=== PATIENT | male | born 1960 | race Caucasian/White ===

== ENCOUNTER → 2016-04-28 | Outpatient (CLI) | payer MEDICAID | LOC: SBRMNEURO 21:30 | PROVIDERS: ATTEND Psychiatry & Neurology Sleep Medicine | DX: G47.33 Obstructive sleep apnea (adult) (pediatric) (principal) ==

== ENCOUNTER 2016-12-01 22:59 | Emergency (ER) | payer MEDICAID ==
[2016-12-01 23:17] VITALS: RESP 16; TEMP 98.2; O2SAT 95
--- NOTE | 2016-12-01 23:24 | EDPHY ---
H & P Stated Complaint: Right flank pain. HPI/ROS: HPI CHIEF COMPLAINT: Right flank pain HISTORY OF PRESENT ILLNESS: Patient very pleasant 56-year-old male who presents emergency room with right flank pain. Patient reports to me that around 5 o'clock in noticed some right dull flank pain. Radiates to his right lower abdomen and then into his testicle. No nausea vomiting no fever no dysuria no blood in his urine. This pain has been persistent. Similar to previous kidney stones but more gradual. Denies chest pain or shortness of breath. 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 Exam Constitutional appears well nontoxic, triage nursing summary reviewed, vital signs reviewed, awake/alert. Eyes normal conjunctivae and sclera, EOMI, PERRLA. HENT normal inspection, atraumatic, moist mucus membranes, no epistaxis, neck supple/ no meningismus, no raccoon eyes. Respiratory clear to auscultation bilaterally, normal breath sounds, no respiratory distress, no wheezing. Cardiovascular rate normal, regular rhythm, no murmur, no edema, distal pulses normal. Gastrointestinal soft, non-tender, no rebound, no guarding, normal bowel sounds, no distension, no pulsatile mass. Genitourinary no CVA tenderness. Musculoskeletal no midline vertebral tenderness, full range of motion, no calf swelling, no tenderness of extremities, no meningismus, good pulses, neurovascularly intact. Skin pink, warm, & dry, no rash, skin atraumatic. Neurologic awake, alert and oriented x 3, AAOx3, moves all 4 extremities equally, motor intact, sensory intact, CN II-XII intact, normal cerebellar, normal vision, normal speech. Psychiatric normal mood/affect. Heme/Lymph/Immune no lymphadenopathy. Differential Diagnosis: Includes but is not limited to in a particular order kidney stone, hydroureter, hydronephrosis, pyelonephritis, UTI Medical Decision Making: Plan for this patient IV establishment IV fluid bolus , Toradol for pain control, CT scan abdomen pelvis without contrast for kidney stone right flank pain. Re-evaluate and check urinalysis. Re-evaluation: CT scan of the abdomen pelvis without contrast. The results of the study are this shows 3 mm proximal right UPJ stone. Hydronephrosis present.. The study was read by Dr. Fuchs I viewed the images myself on the PACS system. 1222: Patient resting comfortably no acute distress. Recommend follow up with Urology. Lots of fluids. Stay well-hydrated. Hermitage for acute pain control ibuprofen for mild pain Flomax. Return emergency room if there is worsening symptoms questions or concerns. Source: Patient - Personal History Current Tetanus/Diphtheria Vaccine: Unsure Current Tetanus Diphtheria and Acellular Pertussis (TDAP): Unsure - Medical/Surgical History Hx Asthma: No Hx Chronic Respiratory Disease: No Hx Diabetes: No Hx Cardiac Disease: No Hx Renal Disease: No Hx Cirrhosis: No Hx Alcoholism: No Hx HIV/AIDS: No Hx Splenectomy or Spleen Trauma: No Other PMH: Kidney stones, knee sx, rectal tumor removal. - Social History Smoking Status: Former smoker Constitutional: Initial Vital Signs Temperature (C) 36.8 C 12/01/16 23:12 Heart Rate 66 12/01/16 23:12 Respiratory Rate 16 12/01/16 23:12 Blood Pressure 143/95 H 12/01/16 23:12 O2 Sat (%) 95 12/01/16 23:12 O2 Delivery Mode Room Air Allergies/Adverse Reactions: No Known Allergies Allergy (Unverified 12/01/16 23:17) Home Medications: Medication Instructions Recorded Hydrocodone/APAP 5/325 [H[place]itage 1 - 2 tab PO Q4H PRN #10 tab 12/02/16 5/325] Ibuprofen [Motrin (*)] 800 mg PO Q6-8PRN #7 tab 12/02/16 Tamsulosin HCl [Flomax] 0.4 mg PO DAILY #10 cap 12/02/16 Medical Decision Making - Data Points Laboratory Results: Laboratory Results 12/01/16 23:35 12/01/16 23:35 12/01/16 12/01/16 23:35 23:35 WBC 8.30 10^3/uL 10^3/uL (3.80-9.50) RBC 4.35 10^6/uL L 10^6/uL (4.40-6.38) Hgb 13.7 g/dL g/dL (13.7-17.5) Hct 37.8 % L % (40.0-51.0) MCV 86.9 fL fL (81.5-99.8) MCH 31.5 pg pg (27.9-34.1) MCHC 36.2 g/dL g/dL (32.4-36.7) RDW 11.9 % % (11.5-15.2) Plt Count 235 10^3/uL 10^3/uL (150-400) MPV 9.9 fL fL (8.7-11.7) Neut % (Auto) 50.7 % % (39.3-74.2) Lymph % (Auto) 36.9 % % (15.0-45.0) [place] % (Auto) 6.3 % % (4.5-13.0) Eos % (Auto) 4.9 % % (0.6-7.6) Baso % (Auto) 0.7 % % (0.3-1.7) Nucleat RBC Rel Count 0.0 % % (0.0-0.2) Absolute Neuts (auto) 4.21 10^3/uL 10^3/uL (1.70-6.50) Absolute Lymphs (auto) 3.06 10^3/uL H 10^3/uL (1.00-3.00) Absolute Monos (auto) 0.52 10^3/uL 10^3/uL (0.30-0.80) Absolute Eos (auto) 0.41 10^3/uL H 10^3/uL (0.03-0.40) Absolute Basos (auto) 0.06 10^3/uL 10^3/uL (0.02-0.10) Absolute Nucleated RBC 0.00 10^3/uL 10^3/uL (0-0.01) Immature Gran % 0.5 % % (0.0-1.1) Immature Gran # 0.04 10^3/uL 10^3/uL (0.00-0.10) Sodium 135 mEq/L mEq/L (134-144) Potassium 3.5 mEq/L mEq/L (3.5-5.2) Chloride 102 mEq/L mEq/L (97-110) Carbon Dioxide 21 mEq/l L mEq/l (22-31) Anion Gap 12 mEq/L mEq/L (8-16) BUN 18 mg/dL mg/dL (7-23) Creatinine 1.1 mg/dL mg/dL (0.7-1.3) Estimated GFR > 60 Glucose 126 mg/dL H mg/dL (70-100) Calcium 9.5 mg/dL mg/dL (8.5-10.4) Total Bilirubin 0.4 mg/dL mg/dL (0.1-1.4) Conjugated Bilirubin 0.3 mg/dL mg/dL (0.0-0.5) Unconjugated Bilirubin 0.1 mg/dL mg/dL (0.0-1.1) AST 26 IU/L IU/L (17-59) ALT 32 IU/L IU/L (21-72) Alkaline Phosphatase 65 IU/L IU/L (38-126) Total Protein 7.0 g/dL g/dL (6.3-8.2) Albumin 4.1 g/dL g/dL (3.5-5.0) Lipase 152 IU/L IU/L (23-300) Medications Given: Discontinued Medications Sodium Chloride (Ns) 1,000 mls @ 0 mls/hr IV EDNOW ONE; Wide Open PRN Reason: Protocol Stop: 12/01/16 23:26 Last Admin: 12/01/16 23:39 Dose: 1,000 mls Ketorolac Tromethamine (Toradol) 15 mg IVP EDNOW ONE Stop: 12/01/16 23:43 Last Admin: 12/02/16 00:03 Dose: 15 mg Departure - Departure Disposition: Home, Routine, Self-Care Clinical Impression: Kidney stone on right side Condition: Good Instructions: Kidney Stones (ED) Additional Instructions: 1. Stay well-hydrated drink lots of fluids. 2. Return emergency room if you have worsening pain vomiting or fever Referrals: Arpit Hayden MD [Primary Care Provider] - As per Instructions Paul Saunders MD [Medical Doctor] - As per Instructions Prescriptions: Hydrocodone/APAP 5/325 [[place] 5/325] 1 - 2 tab PO Q4H PRN #10 tab PRN Reason: Pain, Moderate Ibuprofen [Motrin (*)] 800 mg PO Q6-8PRN #7 tab Tamsulosin HCl [Flomax] 0.4 mg PO DAILY #10 cap
[2016-12-01] MEDS ORDERED: NS 1,000 ML IV ONE (23:25)
[2016-12-01] MEDS ORDERED: KETOROLAC 15 MG/1 ML SDV IVP ONE (23:42)
[2016-12-01 23:55] LABS: % IMMATURE GRANULYOCYTES 0.5 % (0.0-1.1); ABSOLUTE IMMATURE GRANULOCYTES 0.04 10^3/uL (0.00-0.10); ADD DIFF? NO; ADD MORPH? NO; ADD SCAN? NO; ATYPICAL LYMPHOCYTE FLAG 0 (0-99); FRAGMENT RBC FLAG 0 (0-99); HEMATOCRIT 37.8 % (40.0-51.0); HEMOGLOBIN 13.7 g/dL (13.7-17.5); LEFT SHIFT FLG 0 (0-99); LIPEMIA HEMOLYSIS FLAG 90 (0-99); MEAN CELL HEMOGLOBIN 31.5 pg (27.9-34.1); MEAN CELL HEMOGLOBIN CONCENTR. 36.2 g/dL (32.4-36.7); MEAN CELL VOLUME 86.9 fL (81.5-99.8); MEAN PLATELET VOLUME 9.9 fL (8.7-11.7); PLATELET CLUMPS FLAG 0 (0-99); PLATELET COUNT 235 10^3/uL (150-400); RED BLOOD CELL COUNT 4.35 10^6/uL (4.40-6.38); RED CELL DISTRIBUTION WIDTH 11.9 % (11.5-15.2)
[2016-12-02] LABS: ALANINE AMINOTRANSFERASE 32 IU/L (21-72); ALBUMIN 4.1 g/dL (3.5-5.0); ALKALINE PHOSPHATASE 65 IU/L (38-126); ANION GAP 12 mEq/L (8-16); ASPARTATE AMINOTRANSFERASE 26 IU/L (17-59); BILIRUBIN,TOTAL 0.4 mg/dL (0.1-1.4); BILIRUBIN-CONJUGATED 0.3 mg/dL (0.0-0.5); BILIRUBIN-UNCONJUGATED 0.1 mg/dL (0.0-1.1); CALCIUM 9.5 mg/dL (8.5-10.4); CARBON DIOXIDE 21 mEq/l (22-31); CHLORIDE 102 mEq/L (97-110); CREATININE 1.1 mg/dL (0.7-1.3); GLOMERULAR FILTRATION RATE > 60; GLUCOSE 126 mg/dL (70-100); POTASSIUM 3.5 mEq/L (3.5-5.2); SODIUM 135 mEq/L (134-144)
[2016-12-02 00:45] LABS: COLOR YELLOW; LEUKOCYTE ESTERASE,URINE NEGATIVE (NEGATIVE); NITRITE,URINE NEGATIVE (NEGATIVE)
[2016-12-02 01:25] VITALS: BP 128/81
[2016-12-02 01:27] VITALS: PULSE 60
[2016-12-02 01:34] LABS: MUCUS 1+ /lpf (NONE-1+); RBC,URINE 50-182 /hpf (0-3)
== END 2016-12-02 01:41 | disposition home or self-care (01) ==
DX: N20.0 Calculus of kidney (principal); E86.9 Volume depletion, unspecified; Z87.891 Personal history of nicotine dependence
CPT/HCPCS: 96374; J1885

== ENCOUNTER 2017-08-22 16:00 | Emergency (ER) | payer MEDICAID ==
--- NOTE | 2017-08-22 17:09 | EDPHY ---
H & P Time Seen by Provider: 08/22/17 17:08 HPI/ROS: CHIEF COMPLAINT: Right-sided flank pain HISTORY OF PRESENT ILLNESS: History of kidney stones, 4 previously. Last was diagnosed 12/01/[address] scan in our department. Presents today with pain since 3:00 p.m., right-sided wrapping around to his anterior abdomen into his right testicle. Little bit of urinary urgency. No fever or chills. No recent injury or trauma. No vomiting or diarrhea. Feels identical to previous kidney stones which never had to have surgical or procedural removal. Symptoms moderate at this time. REVIEW OF SYSTEMS: Eye: no change in vision ENT: no sore throat Cardiac: no chest pain or syncope Pulmonary: no cough or SOB Abdomen: HPI Musculoskeletal: HPI Skin: no rash Neuro: no headache Constitutional: no fever, did not get a lot of sleep last night he went to a concert and then woke up early today. : no urinary symptoms A comprehensive 10 point review of systems is otherwise negative aside from elements mentioned in the history of present illness. PAST MEDICAL HISTORY: Kidney stones, carcinoid rectal tumor removal. Social history: Here with his girlfriend General Appearance: Alert and conversant, cooperative. Eyes: No scleral icterus. ENT, Mouth: Normal mucous membranes. Respiratory: Normal respiratory effort, breath sounds equal, lungs are clear to auscultation. Cardiovascular: Regular rate and rhythm. Gastrointestinal: Abdomen is soft and non tender. Normal male without hernia or testicular swelling or abnormality. Neurological: Alert, face symmetric, normal motor and sensory in extremities. Skin: Warm and dry, no rashes. Musculoskeletal: No peripheral edema. Psychiatric: Not agitated. Emergency Department course/MDM: Likely acute renal colic. Discussed plan with the patient that I would like to try and avoid ionizing radiation, he is agreeable. Toradol 15 mg IV, hydrocodone 1 orally, IV normal saline 1 L, ultrasound. 1907: Ultrasound per Dr. Hernandez shows hydronephrosis, can't see distal ureter, likely acute renal colic on the right side. 4 mm stone in the calyx on the right. Comfortable at this time, requesting Flomax with think is reasonable as he feels that help last time and he did not have allergic reaction and he is not high risk for orthostatic hypotension. Smoking Status: Former smoker Constitutional: Initial Vital Signs Temperature (C) 36.8 C 08/22/17 16:40 Heart Rate 51 L 08/22/17 16:40 Respiratory Rate 16 08/22/17 16:40 Blood Pressure 168/100 H 08/22/17 16:40 O2 Sat (%) 95 08/22/17 16:40 O2 Delivery Mode Room Air Allergies/Adverse Reactions: No Known Allergies Allergy (Unverified 08/22/17 16:39) Home Medications: Medication Instructions Recorded HYDROcodone BITARTRATE 08/22/17 Hydrocodone/APAP 5/325 [Salol 1 tab PO Q4-6PRN PRN #7 tab 08/22/17 5/325] Tamsulosin HCl [Flomax] 0.4 mg PO DAILY8 #7 cap 08/22/17 Medical Decision Making - Diagnostics Imaging Results: Imaging Impressions Abdomen/Pelvis Ultrasound 08/22/17 17:19 Impression: 1. Mild to moderate right hydronephrosis with nonvisualization of the right ureteral jet suggesting possible right ureterolithiasis. 2. Shadowing 4 mm calculus in a calyx lower pole right kidney. 3. No left hydronephrosis. 4. Postvoid bladder residual 138 mL. Findings and recommendations discussed with Emergency Department physician, KEI TAMAYO at 19:07 hour, 08/22/2017. Final report concurs with initial preliminary interpretation. Imaging: Discussed imaging studies w/ call center team leader Radiologist Differential Diagnosis: Differential considered including but not limited to musculoskeletal, shingles, renal colic, UTI, nerve problem Consult/Admit Bed Type: saw [facility] in past for renal colic - Data Points Laboratory Results: Laboratory Results 08/22/17 17:03 08/22/17 08/22/17 17:03 16:45 Sodium 144 mEq/L mEq/L (135-145) Potassium 4.4 mEq/L mEq/L (3.3-5.0) Chloride 106 mEq/L mEq/L (97-110) Carbon Dioxide 25 mEq/l mEq/l (22-31) Anion Gap 13 mEq/L mEq/L (8-16) BUN 23 mg/dL mg/dL (7-23) Creatinine 1.3 mg/dL mg/dL (0.7-1.3) Estimated GFR 57 Glucose 92 mg/dL mg/dL (70-100) Calcium 9.0 mg/dL mg/dL (8.5-10.4) Urine Color YELLOW Urine Appearance CLEAR Urine pH 5.0 (5.0-7.5) Ur Specific [place] 1.019 (1.002-1.030) Urine Protein NEGATIVE (NEGATIVE) Urine Ketones NEGATIVE (NEGATIVE) Urine Blood 2+ H (NEGATIVE) Urine Nitrate NEGATIVE (NEGATIVE) Urine Bilirubin NEGATIVE (NEGATIVE) Urine Urobilinogen NEGATIVE EU EU (0.2-1.0) Ur Leukocyte Esterase NEGATIVE (NEGATIVE) Urine RBC 50-182 /hpf H /hpf (0-3) Urine WBC 1-3 /hpf /hpf (0-3) Ur Epithelial Cells NONE SEEN /lpf /lpf (NONE-1+) Triple Phos Crystals PRESENT /hpf /hpf (NONE-1+) Urine Mucus TRACE /lpf /lpf (NONE-1+) Urine Glucose NEGATIVE (NEGATIVE) Medications Given: Discontinued Medications Hydrocodone Bitart/Acetaminophen (Salol 5/325) 1 tab PO EDNOW ONE Stop: 08/22/17 17:20 Last Admin: 08/22/17 17:31 Dose: 1 tab Hydrocodone Bitart/Acetaminophen (Salol 5/325mg Prepack#6) 1 btl TAKEHOME EDNOW ONE Stop: 08/22/17 19:30 Last Admin: 08/22/17 19:35 Dose: 1 btl Sodium Chloride (Ns) 1,000 mls @ 0 mls/hr IV EDNOW ONE; Wide Open PRN Reason: Protocol Stop: 08/22/17 17:19 Last Admin: 08/22/17 17:30 Dose: 1,000 mls Ketorolac Tromethamine (Toradol) 15 mg IVP EDNOW ONE Stop: 08/22/17 17:20 Last Admin: 08/22/17 17:31 Dose: 15 mg Tamsulosin HCl (Flomax) 0.4 mg PO EDNOW ONE Stop: 08/22/17 19:29 Last Admin: 08/22/17 19:34 Dose: 0.4 mg Departure - Departure Disposition: Home, Routine, Self-Care Clinical Impression: Renal colic on right side Condition: Good Instructions: Hydrocodone/Acetaminophen (By mouth), Renal Colic (ED) Referrals: Arpit Hayden MD [Primary Care Provider] - As per Instructions Paul Saunders MD [Medical Doctor] - 2-3 days, if not improved Prescriptions: Hydrocodone/APAP 5/325 [Salol 5/325] 1 tab PO Q4-6PRN PRN #7 tab PRN Reason: For Pain Tamsulosin HCl [Flomax] 0.4 mg PO DAILY8 #7 cap
[2017-08-22] MEDS ORDERED: NS 1,000 ML IV ONE (17:18)
[2017-08-22] MEDS ORDERED: KETOROLAC 15 MG/1 ML SDV IVP ONE (17:19)
[2017-08-22] MEDS ORDERED: HYDROCODONE/APAP 5/325 TAB PO ONE (17:19)
[2017-08-22] MEDS ORDERED: TAMSULOSIN HCL 0.4 MG CAP PO ONE (19:28)
[2017-08-22] MEDS ORDERED: HYDROCOD/APAP 5/325 PREPACK#6 BTL TAKEHOME ONE (19:29)
[2017-08-22 19:46] VITALS: BP 142/88
== END 2017-08-22 19:46 | disposition home or self-care (01) ==
DX: N23 Unspecified renal colic (principal); E86.9 Volume depletion, unspecified; Z87.891 Personal history of nicotine dependence
CPT/HCPCS: 96374; J1885